=== PATIENT | female | born 1935 | race African-American/Black ===

== ENCOUNTER 2018-08-07 17:25 | Emergency (ER) | payer OTHER, MEDICAID ==
[~2018-08-07] VITALS: Ht 165.1 cm; Wt 65.0 kg
[2018-08-07] MEDS ORDERED: HYDR-4133 PO (17:28)
[2018-08-07] MEDS ORDERED: LOSA25TA3 PO (17:29)
[2018-08-07] MEDS ORDERED: AMLO5TAB4 PO (17:30)
[2018-08-07 18:52] LABS: BASOPHILS % 0.7 % (0.0-2.0); EOSINOPHILS % 1.5 % (0.0-5.0); HEMATOCRIT. 35.7 % (36.0-48.0); HEMOGLOBIN. 11.7 g/dL (12.0-16.0); LYMPHOCYTES % 20.9 % (20.0-50.0); MEAN CORPUSCULAR HEMOGLOBIN 27.3 pg (28.0-32.0); MONOCYTES % 9.4 % (2.0-8.0); NEUTROPHILS % 67.5 % (40.0-76.0); PLATELET 234 x1000/uL (130-400); RED CELL DISTRIBUTION WIDTH 16.5 % (11.6-14.6)
[2018-08-07 18:55] LABS: CHLORIDE 104 mEq/L (98-107)
[2018-08-07 19:37] VITALS: BP 151/72
== END 2018-08-07 20:50 | disposition home or self-care (01) ==
LOC: ER 17:51
DX: I10 Essential (primary) hypertension (principal); Z88.8 Allergy status to other drugs, medicaments and biological substances; Z88.5 Allergy status to narcotic agent
CPT/HCPCS: 36415; 71045; 80048; 84484; 93005; 99284

== ENCOUNTER 2019-01-17 | Emergency (ER) | payer OTHER, MEDICAID ==
[~2019-01-17] VITALS: Ht 152.4 cm; Wt 41.0 kg
[~2019-01-17] MED LIST: AMLO5TAB4 PO; HYDR-4133 PO; LOSA25TA3 PO
[2019-01-17 02:09] VITALS: BP 150/69
== END 2019-01-17 03:53 | disposition home or self-care (01) ==
LOC: ER
DX: I10 Essential (primary) hypertension (principal); Z79.899 Other long term (current) drug therapy
CPT/HCPCS: 99283